=== PATIENT | male | born 1970 | race Caucasian/White ===

== ENCOUNTER 2024-11-03 15:51 | Inpatient (IN) | payer OTHER, SELFPAY ==
--- OUTSIDE RECORDS SUMMARY | 2024-10-29 13:20 | XMS_ITS | Encounter Summary ---
Author Organization [facility] Address [address] [place] [address] Care Team Providers Care Forest Logistics Manager Name Role Phone Unavailable Primary Care Provider Unavailabl e Encounter Details Date Type Department Care Team (Late st Contact Info) Description 10/29/2024 1:20 PM EDT Office Visit [facility] [address] [place] [phone] Saundra Drake PA [address] [place] [address] Pain and swelling of right knee (Primary Dx); Acute pain of right knee Social History Tobacco Use Types Packs/Day Years Used Date Smoking Tobacco: Never Assessed Sex and Gender Information Value Date Recorded Sex Assigned at Not on file Legal Sex Male 7:16 PM EDT Gender Identity Not on file Sexual Orientation Not on file documented as of this encounter Last Filed Vital Signs Vital Sign Reading Time Taken Comments Blood Pressure 114/86 10/29/2024 1:25 PM EDT Pulse 95 10/29/2024 1:25 PM EDT Temperature - - Respiratory Rate - - Oxygen Saturation 99% 10/29/2024 1:25 PM EDT Inhaled Oxygen Concentration - - Weight 78.9 kg (174 lb) 10/29/2024 1:25 PM EDT Height - - Body Mass Index - - documented in this encounter Plan of Treatment Scheduled Orders Name Type Priority Associated Diagnoses Orde r Schedule Splint Application Procedures Routine Pain and swelling of right knee Acute pain of right knee Ordered: 10/29/2024 documented as of this encounter Procedures Procedure Name Priority Date/Time Associated Diagnosis Comments XR KNEE 3 VIEWS RIGHT STAT 10/29/2024 1:46 PM EDT Acute pain of right knee documented in this encounter Results * XR knee 3 views right (10/29/2024 1:46 PM EDT) Anatomical Region Laterality Modality Lower Extremities, Knee Right [facility] 10/30/2024 9:51 AM EDT Impressions 10/30/2024 9:51 AM EDT Soft tissue edema without acute osseous findings. ELECTRONICALLY SIGNED BY: Hernan Corral MD Narrative 10/30/2024 9:51 AM EDT EXAMINATION/TECHNIQUE: XR KNEE 3 VIEWS RIGHT HISTORY: Right knee pain. COMPARISON: None RESULT: No acute fracture. No dislocation. No joint effusion. Small osteophytes. Mild medial compartment narrowing. Fairly extensive soft tissue edema anteriorly, suspicious for prepatellar bursitis, better assessed clinically. Procedure Note Hernan Corral MD - 10/30/2024 EXAMINATION/TECHNIQUE: XR KNEE 3 VIEWS RIGHT HISTORY: Right knee pain. COMPARISON: None RESULT: No acute fracture. No dislocation. No joint effusion. Small osteophytes.Mild medial compartment narrowing. Fairly extensive soft tissue edemaanteriorly, suspicious for prepatellar bursitis, better assessedclinically. IMPRESSION: Soft tissue edema without acute osseous findings. ELECTRONICALLY SIGNED BY: Hernan Corral MD Saundra LINTON IMG XR PROCEDURES Final Resu lt documented in this encounter Visit Diagnoses Diagnosis Pain and swelling of right knee- Primary Acute pain of right knee documented in this encounter
--- OUTSIDE RECORDS SUMMARY | 2024-10-29 13:20 | XMS_ITS | Encounter Summary ---
Author Organization [facility] Address [address] [place] [address] Care Team Providers Care Physiological Chemist Name Role Phone Unavailable Primary Care Provider Unavailabl e Encounter Details Date Type Department Care Team (Late st Contact Info) Description 10/29/2024 1:20 PM EDT Office Visit [facility] [place] [facility] [address] [place] [phone] Saundra Drake PA [address] [place] [address] Pain and swelling of right knee (Primary [...] Laterality Modality Lower Extremities, Knee Right [facility] 10/30/2024 9:51 AM EDT Impressions [...]
--- OUTSIDE RECORDS SUMMARY | 2024-10-29 13:45 | XMS_ITS | Encounter Summary ---
Author Organization [facility] Address [address] [place] [address] Care Team Providers Care Second Cook And Baker Name Role Phone Unavailable Primary Care Provider Unavailabl e Encounter Details Date Type Department Care Team (Late st Contact Info) Description 10/29/2024 1:45 PM EDT Ancillary Procedure [facility] [address] [phone] Social History Tobacco Use Types Packs/Day Years Used Date Smoking Tobacco: Never Assessed Sex and Gender Information Value Date Recorded Sex Assigned at Not on file Legal Sex Male 7:16 PM EDT Gender Identity Not on file Sexual Orientation Not on file documented as of this encounter Plan of Treatment Not on file documented as of this encounter Procedures Procedure Name Priority Date/Time Associated Diagnosis Comments XR KNEE 3 VIEWS RIGHT STAT 10/29/2024 1:46 PM EDT Acute pain of right knee documented in this encounter Results * XR knee 3 views right (10/29/2024 1:46 PM EDT) Anatomical Region Laterality Modality Lower Extremities, Knee Right Radiogra phic Imaging 10/30/2024 9:51 AM EDT Impressions 10/30/2024 [...] ELECTRONICALLY SIGNED BY: Hernan Corral MD Saundra Noelle [facility] IMG XR PROCEDURES Final Resu lt documented in this encounter Visit Diagnoses Not on filedocumented in this encounter
--- OUTSIDE RECORDS SUMMARY | 2024-10-29 13:45 | XMS_ITS | Encounter Summary ---
Author Organization [facility] Address [address] [place] [address] Care Team Providers Care Tailing Machine Operator Name Role Phone Unavailable Primary Care Provider Unavailabl e Encounter Details Date Type Department Care Team (Late st Contact Info) Description 10/29/2024 1:45 PM EDT Ancillary Procedure [facility] Imaging [address] [phone] Social History Tobacco Use Types [...]
[2024-11-03 15:56] VITALS: BP 149/80; PULSE 88; TEMP 36.8; O2SAT 96; BMI 29.0
--- NOTE | 2024-11-03 16:11 | XR_ITS ---
The [address] [address] Patient Name: DAYTON CANTU MRN: [id number] date: 1970 Sex: M Assigned Patient Location: ED.MAIN Current Patient Location: ED.MAIN Accession/Order Number: [id number] Exam Date: 11/03/2024 16:40 Report Date: 11/03/2024 17:04 At the request of: SHEY LINTON Procedure: XR knee RT 3V XR knee RT 3V 11/03/2024 4:44 PM SIGNS AND SYMPTOMS: Right knee pain and swelling PROTOCOL: Frontal, lateral, and oblique radiographs of the right knee COMPARISON: None FINDINGS: There is mild narrowing of the medial weightbearing joint space. The patellofemoral joint space is preserved. There is no fracture or dislocation. There is soft tissue swelling in the prepatellar soft tissues. No joint effusion. XR/XR knee RT 3V IMPRESSION: No acute bony injury. Prepatellar soft tissue swelling is noted. Impression dictated by: Dilan High M.D. 11/03/2024 5:04 PM Dictation Location: [place] [address] Electronically authenticated by: [id number] Y Date: 11/03/2024 17:04
--- OUTSIDE RECORDS SUMMARY | 2024-11-03 16:30 | XMS_ITS | Encounter Summary ---
Author Organization [facility] Address [address] [place] [address] Care Team Providers Care Solution Design Engineer Name Role Phone Unavailable Primary Care Provider Unavailabl e Encounter Details Date Type Department Care Team (Late st Contact Info) Description 10/30/2024 Results Follow-Up [facility] [address] [facility] [address] [place] [phone] Saundra Drake PA [address] [place] [address] XR knee 3 views right Social History Tobacco Use Types Packs/Day Years Used Date Smoking Tobacco: Never Assessed Sex and Gender Information Value Date Recorded Sex Assigned at Not on file Legal Sex Male 7:16 PM EDT Gender Identity Not on file Sexual Orientation Not on file documented as of this encounter Miscellaneous Notes * Telephone Encounter - Sasha Bolton MA - 10/30/2024 12:25 PM EDT Spoke to pt he understood, and had no further questions at this time documented in this encounter Plan of Treatment Not on file documented as of this encounter Visit Diagnoses Not on filedocumented in this encounter
--- OUTSIDE RECORDS SUMMARY | 2024-11-03 16:30 | XMS_ITS | Encounter Summary ---
Author Organization [facility] Address [address] [place] [address] Care Team Providers Care Radiation Therapy Technician Name Role Phone Unavailable Primary Care Provider Unavailabl e Encounter Details Date Type Department Care Team (Latest Contact Info) Description 10/29/2024 Travel Social History Tobacco Use Types Packs/Day Years [...]
--- OUTSIDE RECORDS SUMMARY | 2024-11-03 16:30 | XMS_ITS | Clinical Summary ---
Author Organization [facility] Healthcare Address [address] [place] [address] Care Team Providers Care Weather Algorithm Scientist Name Role Phone Unavailable Primary Care Provider Unavailabl e Allergies No known active allergies Medications predniSONE (Deltasone) 10 MG tabletIndication s:Pain and swelling of right knee Day 1-2 take 4 tabs orally by mouth once daily. Day 3-4 take 3 tabs. Day 5-6 take 2 tabs. Day 7-8 take 1 tab. Once daily for 8 days. 20 tablet 10/29/2024 Active Encounters Date Type Department Care Team Description 10/30/2024 Results Follow-Up [facility] [address] [facility] [address] [place] [address] Saundra Drake PA XR knee 3 views right 10/29/2024 1:45 PM EDT Ancillary Procedure [facility] [address] [facility] [address] [place] [address] 10/29/2024 1:20 PM EDT Office Visit [facility] [address] [facility] [address] [place] [address] Saundra Drake PA Pain and swelling of right knee (Primary Dx); Acute pain of right knee 10/29/2024 Travel from Last 3 Months Social History Tobacco Use Types Packs/Day Years Used Date Smoking Tobacco: Never Assessed Sex and Gender Information Value Date Recorded Sex Assigned at Not on file Legal Sex Male 7:16 PM EDT Gender Identity Not on file Sexual Orientation Not on file Last Filed Vital Signs Vital Sign Reading Time Taken Comments Blood Pressure 114/86 10/29/2024 1:25 PM EDT Pulse 95 10/29/2024 1:25 PM EDT Temperature - - Respiratory Rate - - Oxygen Saturation 99% 10/29/2024 1:25 PM EDT Inhaled Oxygen Concentration - - Weight 78.9 kg (174 lb) 10/29/2024 1:25 PM EDT Height - - Body Mass Index - - Plan of Treatment Health Maintenance Due Date Last Done Comments CT Colonography 1970 Colonoscopy 1970 Colorectal Cancer Screening 1970 FIT-DNA 1970 FIT 1970 FOBT 1970 Sigmoidoscopy 1970 Influenza Vaccine (#1) 2024 Procedures Procedure Name Priority Date/Time Associated Diagnosis Comments XR KNEE 3 VIEWS RIGHT STAT 10/29/2024 1:46 PM EDT Acute pain of right knee from Last 3 Months Results * XR knee 3 views right (10/29/2024 1:46 PM EDT) Anatomical Region Laterality Modality Lower Extremities, Knee Right [facility] 10/30/2024 9:51 AM EDT [...] findings. ELECTRONICALLY SIGNED BY: Hernan Corral MD [facility] IMG XR PROCEDURES Final Resu lt from Last 3 Months Insurance [employer]
[2024-11-03 16:37] LABS: Hematocrit 34.3 % (42.0-54.0); Hemoglobin 11.9 g/dL (14.0-18.0); Immature Granulocytes Abs Auto 0.11 10^3/uL (0.00-0.03); Immature Granulocytes Pct Auto 0.6 % (0.0-0.5); Lymphocytes Absolute Auto 1.5 10^3/uL (1.2-3.8); Mean Corpuscular HGB Conc 34.7 g/dL (29.9-35.2); Mean Corpuscular Hemoglobin 30.5 pg (25.9-34.0); Mean Corpuscular Volume 87.9 fL (80.0-94.0); Platelet Count 299 10^3/uL (150-450); Red Blood Count 3.90 10^6/uL (4.70-6.10); White Blood Count 18.0 10^3/uL (4.0-11.0)
[2024-11-03 16:45] LABS: Anion Gap 14.4; Blood Urea Nitrogen 18.0 mg/dL (7.0-18.0); Calcium 8.7 mg/dL (8.5-10.1); Carbon Dioxide 27.8 mmol/L (21.0-32.0); Chloride 102 mmol/L (98-107); Estimated GFR (African America >60 (>=60 mL/min/1.73m^2); Estimated GFR (Non-African Ame >60 (>=60 mL/min/1.73m^2); Glucose 155 mg/dL (74-106); Potassium 3.2 mmol/L (3.5-5.1); Sodium 141 mmol/L (136-145)
[2024-11-03 16:54] LABS: Lactate/Lactic Acid 1.9 mmol/L (0.4-2.0)
--- NOTE | 2024-11-03 16:54 | ED_ITS ---
HPI HPI - Extremity Injury (Lower) General Chief Complaint: Extremity Injury, Lower Stated Complaint: LOWER EXTREMITY INJURY Time Seen by Provider: 11/03/24 15:57 Source: patient Mode of arrival: walk-in History of Present Illness HPI Narrative: 54-year-old male presents to the ED with swelling, redness, and pain of the right lower extremity. Symptoms began approximately 2 days ago after prolonged kneeling while laying daniel at home, during which he sustained a small abrasion over the prepatellar area. He reports progressive redness and warmth extending from the prepatellar region down into the calf and up the medial thigh. Pain is most prominent around the patella. He denies numbness, tingling, or weakness in the leg. He is afebrile and has not experienced systemic symptoms such as chills or malaise. He has no history of autoimmune disease or immunosuppression and is not currently taking any medications. There are no known aggravating or relieving factors. He reports no history of similar symptoms in the past. Related Data Home Medications ?Medication ?Instructions ?Recorded ?Confirmed prednisone 10 mg tablet 10 mg PO DAILY 11/03/2410/07 Allergies Allergy/AdvReac Type Severity Reaction Status Date / Time No Known Drug Allergies Allergy Verified 11/03/24 15:56 Opioid HPI Opioid Management Most Recent Pain and Opioid Data: Last Pain Scale 8 Today, 18:50 Last Pain Assessment Today, 18:50 Last ORT Total Score 0 Today, 18:53 Last ORT Risk Category Low Risk Today, 18:53 PFSH PFSH Social History Highest level of school completed/degree received: GED or equivalent Little interest or pleasure in doing things: not at all Feeling down, depressed, or hopeless: not at all Do you think of yourself as: straight/heterosexual Gender Identity: male Exam Narrative Exam Narrative: General: Alert, oriented, no acute distress. Afebrile. Cardiac: Regular rate and rhythm, no murmurs. Distal pulses 2+ and symmetric. Pulmonary: Lungs clear to auscultation bilaterally. No respiratory distress. Abdomen: Soft, nondistended, non-tender. Extremities (Right Lower Extremity): * Erythema, warmth, and tenderness over the prepatellar region extending into the medial thigh and proximal calf. * Streaking noted along the medial thigh. * Mild prepatellar edema. * No fluctuance or drainable abscess appreciated. * Full active and passive range of motion of the knee without significant pain, making septic arthritis less likely. * Calf tender to palpation, but no palpable cord. * Distal pulses palpable, capillary refill <2 seconds. Sensation intact distally. Skin: Abrasion noted overlying prepatellar area. No necrosis, crepitus, or bullae. Neuro: Motor strength intact in bilateral lower extremities. Sensation intact to light touch. Cranial nerves II?XII grossly intact. Constitutional Vital Signs, click to edit/add: Last Vital Signs Temp 98.3 F 11/03/24 15:56 Pulse 88 11/03/24 15:56 Resp 18 11/03/24 15:56 BP 149/80 H 11/03/24 15:56 Pulse Ox 96 11/03/24 15:56 O2 Del Method Room Air 11/03/24 15:56 Course Vital Signs Vital signs: Vital Signs Temperature 98.3 F 11/03/24 15:56 Pulse Rate 88 11/03/24 15:56 Respiratory Rate 18 11/03/24 15:56 Blood Pressure 149/80 H 11/03/24 15:56 Pulse Oximetry 96 11/03/24 15:56 Oxygen Delivery Method Room Air 11/03/24 15:56 Temperature 98.3 F 11/03/24 15:56 Pulse Rate 88 11/03/24 15:56 Respiratory Rate 18 11/03/24 15:56 Blood Pressure 149/80 H 11/03/24 15:56 Pulse Oximetry 96 11/03/24 15:56 Oxygen Delivery Method Room Air 11/03/24 15:56 MDM - Extremity Injury (Lower) MDM Narrative Medical decision making narrative: 54-year-old male presents with right lower extremity pain, swelling, redness, and warmth localized around the prepatellar region with extension into the calf and medial thigh. Symptoms began after prolonged kneeling while laying daniel with associated abrasion to the area. On exam, he is afebrile, neurovascularly intact, with erythema, warmth, and tenderness over the prepatellar area, streaking up the medial thigh, and calf tenderness. No evidence of fluctuance or septic joint as he is able to move the knee through a full range of motion after antibiotic initiation. Workup revealed leukocytosis (WBC 18). Lower extremity ultrasound was negative for DVT. X-ray demonstrated prepatellar soft tissue edema consistent with cellulitis. Given extent of infection, streaking erythema, elevated WBC, and failure to improve with conservative measures, patient was started on IV vancomycin and ceftriaxone in the ED. Presentation is most consistent with cellulitis, likely secondary to skin break/abrasion. Given severity, rapid progression, and risk for worsening infection, patient will benefit from hospital admission for continued IV antibiotic therapy and monitoring. Medical Records Attestation: I reviewed the patient's medical records. Lab Data Attestation: I reviewed the patient's lab results. Labs: Lab Results 11/03/24 11/03/24 Range/Units 16:18 16:26 WBC 18.0 H (4.0-11.0) 10^3/uL RBC 3.90 L (4.70-6.10) 10^6/uL Hgb 11.9 L (14.0-18.0) g/dL Hct 34.3 L (42.0-54.0) % MCV 87.9 (80.0-94.0) fL MCH 30.5 (25.9-34.0) pg MCHC 34.7 (29.9-35.2) g/dL RDW 13.6 (11.0-15.0) % Plt Count 299 (150-450) 10^3/uL MPV 11.0 (9.5-13.5) fL Neut % (Auto) 85.7 H (43.0-75.0) % Lymph % (Auto) 8.2 L (20.5-60.0) % [place] % (Auto) 5.2 (1.7-12.0) % Eos % (Auto) 0.1 L (0.9-7.0) % Baso % (Auto) 0.2 (0.2-2.0) % Neut # (Auto) 15.4 H (1.4-6.5) 10^3/uL Lymph # (Auto) 1.5 (1.2-3.8) 10^3/uL [place] # (Auto) 0.9 H (0.3-0.8) 10^3/uL Eos # (Auto) 0.0 (0.0-0.7) 10^3/uL Baso # (Auto) 0.0 (0.0-0.1) 10^3/uL Abs Immat Gran (auto) 0.11 H (0.00-0.03) 10^3/uL Imm/Tot Granulo (auto) 0.6 H (0.0-0.5) % ESR 52 H (<=20) mm/hr Sodium 141 (136-145) mmol/L Potassium 3.2 L (3.5-5.1) mmol/L Chloride 102 (98-107) mmol/L Carbon Dioxide 27.8 (21.0-32.0) mmol/L Anion Gap 14.4 BUN 18.0 (7.0-18.0) mg/dL Creatinine 0.82 (0.70-1.30) mg/dL Est GFR ( Amer) >60 (>=60 mL/min/1.73m^2) Est GFR (Non-Af Amer) >60 (>=60 mL/min/1.73m^2) BUN/Creatinine Ratio 22.0 Glucose 155 H (74-106) mg/dL Calcium 8.7 (8.5-10.1) mg/dL C-Reactive Protein 13.03 H (<=0.50) mg/dL Imaging Data xr: Attestation: I have reviewed the pertinent imaging results. Radiologist's impression: ITS Impressions Knee X-Ray 11/03/24 16:11 IMPRESSION: No acute bony injury. Prepatellar soft tissue swelling is noted. Impression dictated by: Dilan High M.D. 11/03/2024 5:04 PM Dictation Location: [place] [address] Electronically authenticated by: [id number] Y Date: 11/03/2024 17:04 The ultrasound showed 1 no DVT in the right lower extremity 2 mild soft tissue edema at the right calf. Patient in normal waveform augmentation. This was read by Tien Tabares at 1621 Discharge Plan Discharge Chief Complaint: Extremity Injury, Lower Clinical Impression: Cellulitis of leg, right Patient Disposition: Admitted as Observation Time of Disposition Decision: 18:00 Discharge Date/Time: 11/03/24 18:44
[2024-11-03] MEDS: VANCOMYCIN HCL 1,000 MG in 0.9 % SODIUM CHLORIDE 250 ML 250 MG IV (17:09)
[2024-11-03 18:50] VITALS: BP 147/74; PULSE 78; TEMP 36.8; O2SAT 94
[2024-11-03 18:53] VITALS: BP 140/84; BP 147/74; PULSE 78; PULSE 84; TEMP 36.8; TEMP 37.2; O2SAT 94; O2SAT 98
[2024-11-03 20:00] VITALS: BP 151/81; PULSE 86; TEMP 36.8; O2SAT 97
[2024-11-03] MEDS: 0.9 % SODIUM CHLORIDE 1,000 ML 100 ML IV (22:05)
[2024-11-03] MEDS: ENOXAPARIN SODIUM 40 MG/0.4 ML SYRINGE SUBQ (22:06)
[2024-11-03] MEDS: POTASSIUM CHLORIDE 10 MEQ ER TABLET 20 MEQ PO (22:06)
[2024-11-03] MEDS: ACETAMINOPHEN 325 MG TABLET 650 MG PO (22:06)
[2024-11-04] VITALS: BP 159/79; PULSE 80; TEMP 36.8; O2SAT 94
[2024-11-04 04:00] VITALS: BP 162/78; PULSE 78; TEMP 37.3; O2SAT 94
[2024-11-04 06:45] LABS: Hematocrit 31.7 % (42.0-54.0); Hemoglobin 10.7 g/dL (14.0-18.0); Immature Granulocytes Abs Auto 0.06 10^3/uL (0.00-0.03); Immature Granulocytes Pct Auto 0.4 % (0.0-0.5); Lymphocytes Absolute Auto 3.5 10^3/uL (1.2-3.8); Mean Corpuscular HGB Conc 33.8 g/dL (29.9-35.2); Mean Corpuscular Hemoglobin 30.7 pg (25.9-34.0); Mean Corpuscular Volume 91.1 fL (80.0-94.0); Platelet Count 288 10^3/uL (150-450); Red Blood Count 3.48 10^6/uL (4.70-6.10); White Blood Count 17.1 10^3/uL (4.0-11.0)
[2024-11-04 06:57] LABS: Anion Gap 12.4; Blood Urea Nitrogen 15.0 mg/dL (7.0-18.0); Calcium 8.3 mg/dL (8.5-10.1); Carbon Dioxide 30.1 mmol/L (21.0-32.0); Chloride 102 mmol/L (98-107); Estimated GFR (African America >60 (>=60 mL/min/1.73m^2); Estimated GFR (Non-African Ame >60 (>=60 mL/min/1.73m^2); Glucose 116 mg/dL (74-106); Magnesium 1.7 mg/dL (1.8-2.4); Potassium 3.5 mmol/L (3.5-5.1); Sodium 141 mmol/L (136-145)
[2024-11-04 07:38] VITALS: BP 156/84; PULSE 80; TEMP 36.9; O2SAT 95
[2024-11-04] MEDS: IBUPROFEN 400 MG TABLET PO ×2 (07:48→17:48)
--- NOTE | 2024-11-04 09:00 | P.HP_ITS ---
HPI H&P: HPI History of Present Illness Chief complaint: LOWER EXTREMITY INJURY, CELLULITUS OF RIGHT LEG Narrative: Mr. Mehta is a 54-year-old gentleman who came in with pain, swelling and tenderness in the right leg from the mid thigh down to the mid calderon. This started after patient started working on carpet at home and kneeling trying to fit the carpet. No prior history of infection. No other medical issues. Opioid HPI Opioid Management Most Recent Pain and Opioid Data: Last Pain Scale 4 Today, 08:59 Last Pain Assessment 11/03/24, 18:50 Last MAR Pain Assessment 11/03/24, 22:06 Last ORT Total Score 0 11/03/24, 18:53 Last ORT Risk Category Low Risk 11/03/24, 18:53 Review of Systems ROS Status of ROS 10 or more systems reviewed and unremark able except as noted in history and below [facility] Medical History (Updated 11/04/24 @ 09:02 by Gio Mack MD) Tobacco abuse ?Z72.0 - Tobacco use (ICD-10) Hypertension ?I10 - Essential (primary) hypertension (ICD-10) Family History (Updated 11/04/24 @ 06:00 by Walter Whitman RN) Other Family history of hypertension Social History (Updated 11/04/24 @ 06:02 by Walter Whitman RN) Smoking status: Current every day smoker Non-prescribed substance use: denies use Previous occupational history: Contractor Highest level of school completed/degree received: GED or equivalent Do you want help with school or training: No Little interest or pleasure in doing things: not at all Feeling down, depressed, or hopeless: not at all Feel stressed/tense/nervous/anxious/difficulty sleeping: not at all Due to disability, difficulty making decisions: No Do you think of yourself as: straight/heterosexual Gender Identity: male Meds Home Medications and Allergies Home Medications ?Medication ?Instructions ?Recorded ?Confirmed ?Type prednisone 10 mg tablet 10 mg PO DAILY 11/03/2410/07 History Allergies Allergy/AdvReac Type Severity Reaction Status Date / Time No Known Drug Allergies Allergy Verified 11/03/24 15:56 Exam Narrative Exam Narrative: [pt is awake and alert. oriented to place, time and person HEENT: Central conjunctiva and NL buccal mucosa Neck: Supple, no tenderness Endocrine: No Thyromegaly. Vascular: No JVD or carotid bruit. Lymphatic: No cervical lymphadenopathy. Chest: CTA no DTP. Heart RRR, no extra sound or murmur. Abd: Soft, no tenderness, no rebound and no rigidity. Increase abd girth therefore clinically I could not exclude the possibility of intra abd mass or organomegaly. LE: No cyanosis or clubbing, no varices or edema. Edema, induration, tenderness of the right leg from the mid thigh anteriorly, medially, laterally, down to the mid calderon. Erythema, induration and tenderness in the thigh and calderon are fading away and improving. Swelling over the kneecap. No actual knee joint effusion. Neuro: A A O. Nl speech, comprehension and attention. Nl and symetrical motor and tone examination through out. []] Constitutional Vital Signs, click to edit/add: Last Vital Signs Temp 98.5 F 11/04/24 07:38 Pulse 80 11/04/24 07:38 Resp 18 11/04/24 07:38 BP 156/84 H 11/04/24 07:38 Pulse Ox 95 11/04/24 07:38 O2 Del Method Room Air 11/04/24 07:38 Results Labs Labs: Short CBC 11/03/24 11/04/24 Range/Units 16:18 05:46 WBC 18.0 H 17.1 H (4.0-11.0) 10^3/uL Hgb 11.9 L 10.7 L (14.0-18.0) g/dL Hct 34.3 L 31.7 L (42.0-54.0) % Plt Count 299 288 (150-450) 10^3/uL BMP 11/03/24 11/04/24 16:18 05:46 Sodium 141 141 Potassium 3.2 L 3.5 Chloride 102 102 Carbon Dioxide 27.8 30.1 BUN 18.0 15.0 Creatinine 0.82 0.61 L Glucose 155 H 116 H Calcium 8.7 8.3 L Assessment and Plan Assessment and Plan (1) Cellulitis of leg, right: (2) Sepsis: Plan Sepsis present on admission. Please refer to initial sepsis evaluation, workup and treatment completed in the emergency room department according to sepsis guidelines. Left leg cellulitis. So far there is no knee joint effusion. There is a swelling in the skin and subcutaneous tissue. At this time, I could not exclude the possibility of septic joint with high degree of certainty The erythema, tenderness and swelling are improving and fading away compared to yesterday according to the patient and his nurse. The entire skin around the knee is inflamed and tender therefore I would not recommend aspiration of the knee at this time that may cause inoculation of bacteria into the joint I started patient on intravenous antibiotic. I will monitor her recovery over the next 48 to 96 hours. I will see Ortho consultation if the suspicion of a septic knee increases over the next 2 days Pain Pain managed DVT prophylax Lovenox subcu
[2024-11-04] MEDS: DOXYCYCLINE MONOHYDRATE 100 MG CAPSULE PO ×2 (10:19→21:19)
[2024-11-04] MEDS: MAGNESIUM SULFATE IN WATER 2 GM/50 ML PREMIX IV (10:20)
[2024-11-04] MEDS: POTASSIUM CHLORIDE 10 MEQ ER TABLET 20 MEQ PO (10:20)
[2024-11-04 11:41] VITALS: BP 144/76; PULSE 71; TEMP 36.9; O2SAT 93
[2024-11-04] MEDS: ACETAMINOPHEN 325 MG TABLET 650 MG PO (15:04)
[2024-11-04 15:10] VITALS: BP 157/87; PULSE 78; TEMP 36.7; O2SAT 97
[2024-11-04 19:47] VITALS: BP 155/87; TEMP 36.9; O2SAT 95
[2024-11-04] MEDS: ENOXAPARIN SODIUM 40 MG/0.4 ML SYRINGE SUBQ (21:19)
[2024-11-05] VITALS (8 sets, daily range): BP systolic 154–185; BP diastolic 82–93; PULSE 68–95; TEMP 36.8–37.3; O2SAT 94–96
[2024-11-05] MEDS: HYDROMORPHONE HCL 0.5 MG/0.5 ML SYRINGE IV ×2 (00:24→05:12)
[2024-11-05] MEDS: ACETAMINOPHEN 325 MG TABLET 650 MG PO (05:12)
[2024-11-05] MEDS: KETOROLAC TROMETHAMINE 30 MG/ML VIAL IVP (06:04)
[2024-11-05] MEDS: AMLODIPINE BESYLATE 5 MG TABLET PO ×2 (06:04→08:59)
[2024-11-05] MEDS: HYDRALAZINE HCL 20 MG/ML VIAL 10 MG IVP (06:36)
[2024-11-05 06:38] LABS: Hematocrit 32.8 % (42.0-54.0); Hemoglobin 11.3 g/dL (14.0-18.0); Mean Corpuscular HGB Conc 34.5 g/dL (29.9-35.2); Mean Corpuscular Hemoglobin 30.9 pg (25.9-34.0); Mean Corpuscular Volume 89.6 fL (80.0-94.0); Platelet Count 312 10^3/uL (150-450); Red Blood Count 3.66 10^6/uL (4.70-6.10); White Blood Count 18.1 10^3/uL (4.0-11.0)
--- NOTE | 2024-11-05 08:49 | P.DS_ITS ---
DS: Providers Provider Date of admission: 11/03/24 18:44 Primary care physician: Non-Staff Physician, DS: Diagnosis Discharge Diagnosis (1) Cellulitis of leg, right: (2) Sepsis: (3) Hypokalemia: (4) Hypomagnesemia: Plan As listed below and others that are not listed DS: Summary Hospital Course Hospital Course: Mr. Mehta is a 54-year-old gentleman who came to the emergency room with pain, swelling and tenderness for a few days after he had been laying carpet at his house. Sepsis present on admission. Please refer to initial sepsis evaluation, workup and treatment completed in the emergency room department according to sepsis guidelines. Left leg cellulitis. When patient came in he had erythema, induration and tenderness from the mid thigh down to the mid calderon anteriorly, medially and laterally including the knee surface The erythema, tenderness and swelling over the thigh and calderon are improving and fading away significant compared to admission based on the marking that was drawn on his leg by the emergency room staff. Patient however continues to have erythema, induration, tenderness involving the cutaneous and subcutaneous anterior, medial and lateral knee. The entire skin around the knee is inflamed and tender therefore I am hesitant to stick a needle in to aspirate the knee which could probably put him at risk of microbial inoculation of the joint Patient is having tough time bending his knee which could be due to his extensi ve cutaneous and subcutaneous infection but also could be due to septic knee So far there is no concrete evidence of knee joint effusion ( septic knee ) but could not exclude the possibility entirely. His white count and CRP continues to be elevated. Blood culture is pending thus far Venous ultrasound is negative for DVT. I called and discussed the case with orthopedic physician Dr. Tien Seymour. He recommended the patient to be transferred to [facility] so he can inspect the knee and make a decision how to proceed. I spoke with my colleague Dr. Chester. He accepted the patient to be admitted under his service to facilitate orthopedic evaluation. Meanwhile continue intravenous antibiotic. Yesterday I started the patient on ceftriaxone and doxycycline. This morning I discontinued doxycycline and started Zyvox intravenously Hypokalemia and hypomagnesemia Potassium and magnesium supplementation Hypertension. History of hypertension. Patient was not taking his medication I started the patient on amlodipine 5 mg daily. This may need to be titrated to control his blood pressure. Pain Pain managed DVT prophylax Lovenox subcu Time Spent with Patient Time attestation: Total time spent providing and/or coordinating discharge services: Exam Narrative Exam Narrative: Distress secondary to pain and discomfort. Chest is clear, heart regular. Abdomen soft. Significant resolution and improvement of erythema, induration and tenderness involving the lower thigh and upper calderon Persistent erythema, induration and tenderness involving the surface of the right knee anteriorly, medially and laterally, superiorly and inferiorly Patient barely able to bend his knee which could be caused by extensive skin i nflammation or could be related to septic knee Constitutional Vital Signs, click to edit/add: Last Vital Signs Temp 98.3 F 11/05/24 07:56 Pulse 68 11/05/24 07:56 Resp 18 11/05/24 07:56 BP 166/82 H 11/05/24 07:56 Pulse Ox 96 11/05/24 07:56 O2 Del Method Room Air 11/05/24 07:56 DS: Data Data Completed and Pending Labs on day of discharge: Labs from last 24 hours 11/05/24 06:12 WBC 18.1 H RBC 3.66 L Hgb 11.3 L Hct 32.8 L MCV 89.6 MCH 30.9 MCHC 34.5 RDW 13.9 Plt Count 312 MPV 11.2 C-Reactive Protein 16.82 H Discharge Plan Discharge Disposition: [facility]
[2024-11-05] MEDS: LINEZOLID IN DEXTROSE 5% 600 MG/300 ML PIGGYBACK 300 MG IV (08:59)
[2024-11-05] MEDS: POTASSIUM CHLORIDE 10 MEQ ER TABLET 20 MEQ PO (09:00)
[2024-11-05] MEDS: SENNOSIDES/DOCUSATE SODIUM 1 TAB TABLET PO (09:03)
--- OUTSIDE RECORDS SUMMARY | 2024-11-07 10:16 | XMS_ITS | Continuity of Care Document ---
Author Organization [facility] Address [address] [place] [address] Phone Care Team Providers Care Brush Clearing Laborer Name Role Phone NON STAFF Primary Care Provider Unavailabl e Paul Renner MD Admit Provider Paul Renner MD Other Provider Sony Carlos MD Attending Provider [phone] Sony Carlos MD Other Provider Tien Seymour II, MD Other Provider Care Teams Patient Care Team Team Status: Active Member Role Status Dates NON STAFF Primary Care Provider Active Visit Care Team Team Status: Active Member Role Status Dates NON STAFF Primary Care Provider Active Start: November 05, 2024 Paul Renner MD Admit Provider Active Start : November 05, 2024 Paul Renner MD Other Provider Active Start : November 05, 2024 Sony Carlos MD Attending Provider Active Sta rt: November 05, 2024 Sony Carlos MD Other Provider Active Start: November 05, 2024 Tien Seymour II, MD Other Provider Active S tart: November 05, 2024 Chief Complaint and Reason for Visit Chief Complaint Admit Date Septic arthtritis of R knee November 05, 2024 12:39pm Reason for Visit Admit Date Cellulitis of right leg November 05 12:39pm Elevated BP without diagnosis of hyperte nsion November 05, 2024 12:39pm Septic joint November 05, 2024 12 :39pm Septic prepatellar bursitis of right kne e November 05, 2024 12:39pm Reason for Referral Referring Provider Name Referring Provider Address Referring Provider Phone Referral Date Requested Appointment Date Referral Reason Paul [facility] [address] [place] [address] Work Phone: Please keep your appointments as scheduled. Please abimael p your appointments as scheduled. Allergies, Adverse Reactions, Alerts Allergen Type Severity Reaction Last Updated Verified Status No Known Allergies Allergy Unknown November 05, 2024 1:4 3pm Yes Active Social History Smoking Status Status Start Date End Date Date of Observa tion Smokes tobacco daily (finding) November 07, 2024 8:05am Observation Status Observation Response Date of Response Legal Sex Male (finding) Sex Assigned At Male 1970 Problems Active Problems Medical Problem Onset Date Status Cellulitis of right leg Unknown Active Septic prepatellar bursitis of right knee Unknow n Active Septic joint Unknown Active Elevated BP without diagnosis of hypertension Un known Active Medications Medication Status Dose Units Route Directions Qty Days St art Date Stop Date End Date Instructions Adherence Prednisone 10 mg tablet Active 10 MG PO Daily November 05, 2024 12:00a m Complies with drug therapy Dicloxacill in 500 mg capsule Active 500 MG PO Every 6 hours 84 21 2024 12:00a m Unknown Lisinopril 20 mg Tablet Active 20 MG PO Daily 30 30 2024 12:00a m Unknown Oxycodone 5 mg Tablet Active 5 MG PO Every 6 hours as needed for Pain Scale 4 - 7 28 7 2024 Unknown Vital Signs Vital Reading Result Reference Range Collection Date/Time Height 64 [in_i] November 05 1:24pm Weight 81.50 kg November 07, 2024 6:44am Body Temperature 97.7 [degF] 97.6-99.0 November 072024 10:03am Heart Rate 65 /min 60-100 November 07, 2024 12:00pm Respiratory rate 17 /min 12-24 November 072024 12:00pm Oxygen saturation by Pulse oximetry 98 % 95-100 November 07, 2024 12:00pm BP Systolic 159 mm[Hg] 100-140 November 07, 2024 12:00pm BP Diastolic 75 mm[Hg] 60-100 November 07, 2024 12:00pm Inhaled oxygen flow rate 8 L/min Oct 6:15pm Advance Directives Advance Directive Response Recorded Date/ Time Advance Directives No October 26, 2019 8:07am Insurance Providers Guarantor Augustine Magui Tyson Address [address] [facility] [address] Contact Info. Home Phone: Payer Policy Id Subscriber's Name Subscriber Id Effectiv e Date Expiration Date [employer] [id number] Augustine Mehta [id number] Encounters Encounter Location(s) Arrival/Admit Date Discharge/Depart Date Provider(s) Non-patient / Non-visit -[facility] November 05, 2024 12:39pm Sony Carlos MD Recent Diagnosis Onset Date Admit Date Cellulitis of right leg Unknown October 082024 12:39pm Elevated BP without diagnosis of hypertension Un known November 05, 2024 12:39pm Septic joint Unknown November 05 12:39pm Septic prepatellar bursitis of right knee Unknow n November 05, 2024 12:39pm Assessments Diagnosis Onset Date Resolution Status Admit Date Cellulitis of right leg acute A ugust 2024 12:39pm Elevated BP without diagnosi s of hypertension acute November 05 12:39pm Septic joint acute November 05, 2024 12:39pm Septic prepatellar bursitis of right knee acute November 05 12:39pm Plan of Treatment Future Tests Future scheduled test information is unavailable Pending Tests Pending diagnostic test information is unavailable Future Visits Future appointment information is unavailable Referrals to Other Providers Reason for Referral Referral Start Date Provider Provider Contact Information Provider Address Please keep your appointments as scheduled. Pato Martin MD Work Phone: [facility] [address] Future Procedures Procedure Name Ordered Date Scheduled Date Wound Culture (Deep) November 05, 2024 6:00pm Au shivani 2024 5:31pm Wound Culture (Deep) November 05, 2024 6:00pm Au shivani 2024 5:29pm Wound Culture (Deep) November 05, 2024 6:00pm Au shivani 2024 5:30pm Diet Supplement November 06, 2024 7:52am Septe [facility] 2024 7:52am Admit Status Order November 05, 2024 6:16pm Augu st 2024 6:16pm Discharge Order November 07, 2024 12:34pm Sept ember 2024 12:34pm Consult to Infectious Diseases November 05, 2024 2:52pm November 05, 2024 2:52pm Consult to Orthopedic Surgery November 05, 2024 2:52pm November 05, 2024 2:52pm Future Medications Future medication information is unavailable Patient Instructions Instruction Admit Date 3M Prevana Plus 125 Therapy Know your Meds November 05, 2024 12:39pm Hospital Discharge Instructions Additional Instructions Maintain wound vac for 2 weeks till follow up in office
--- OUTSIDE RECORDS SUMMARY | 2024-11-08 06:35 | XMS_ITS | Patient Health Record ---
Author Organization [employer] [facility] Address [address] [place] [address] Care Team Providers Care Warehouse General Laborer Name Role Phone Duarte Mar Primary Care Provider Allergies No Known Allergies Reason For Referral No Information Medications Medication SIG (Take, Route, Frequency, Duration) Notes Start Date End Date Status Ibuprofen 800 MG 1 tablet with food o r milk as needed Orally Three times a day 09/23/2020 Active Lisinopril 10 MG TAKE 1 TABLET BY ANAMIKA TH EVERY DAY; Duration: 30 Active Ibuprofen 800 MG 1 tablet with food o r milk as needed Orally Three times a day 07/18/2020 Active Atorvastatin Calcium 20 MG 1 tablet Oral ly Once a day; Duration: 30 days Active Immunizations Vaccine Route Administration Date Status Comme nts MODERNA IM Intramuscular 08/12/2020 Administered MODERNA IM Intramuscular 09/17/2020 Administered Social History Tobacco Use: Social History Observation Description Date Details (start date - stop date) Current Smoker NA - NA Tobacco Screen: Question Answer Notes Are you a: current smoker How often do you smoke cigarettes? every day How many cigarettes a day do you smoke? 11-20 How soon after you wake up do you smoke your fir st cigarette? 6-30 min Sexual Hx: Question Answer Notes Had sex in the last 12 months (vaginal, oral, or anal)? Yes with Women only Use protection? No Prevention Strategies discussed: Other Alcohol Screening: Question Answer Notes Did you have a drink containing alcohol in the p ast year? 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 22. [address] CLAIMS DEPT [facility] [place] [address] [id number] DAY[employer] C[employer]U Self - patient is the insured 0 zMEDICAID C[employer] after [employer] [address] [place] [address] [id number] [employer] C[employer]U Self - patient is the insured 0 [employer]ENTAL [employer] [address] [address] [place] [address] [id number] [employer] C[employer]U Self - patient is the insured 1 [facility] MEDICAID CFC after [employer] 22 [address] [place] [address] [id number] DAY[employer] C[employer]U Self - patient is the insured Medical (General) History Medical History History ICD Code Hearing Loss Lump to Right Side of Head Removed 2020 Hypertension Low Testosterone Hyperlipidemia Hypertriglyceridemia
--- OUTSIDE RECORDS SUMMARY | 2024-11-08 06:35 | XMS_ITS | Clinical Summary ---
Author Organization [facility] Address [address] [place] [address] Care Team Providers Care Wardrobe Supervisor Name Role Phone [facility] Services Randa Clifford [facility] Care Provider Allergies No known active allergies Medications atorvastatin 10 MG tablet Take 10 mg by mouth daily. Active lisinopril 10 MG tablet Take 10 mg by mouth daily. 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 Overview (12/07/2023): IMO Update Dec 2023 Social History Tobacco Use Types Packs/Day Years Used Date Smoking Tobacco: Every Day Cigarettes 1 20 Smokeless Tobacco: Never Alcohol Use Standard Drinks/Week Comments Not Currently 0 (1 standard drink = 0.6 oz pur e alcohol) Sex and Gender Information Value Date Recorded Sex Assigned at Not on file Legal Sex Male 3:14 PM EDT Gender Identity Not on file Sexual Orientation Not on file Last Filed Vital Signs Vital Sign Reading Time Taken Comments Blood Pressure 145/85 01/16/2020 2:22 PM EST Pulse 68 01/16/2020 2:22 PM EST Temperature 36.7 C (98.1 F) 01/16/2020 2:22 PM EST Respiratory Rate 16 01/05/2020 10:00 AM EDT Oxygen Saturation 96% 01/05/2020 10:00 AM EDT Inhaled Oxygen Concentration - - Weight 76.2 kg (168 lb) 01/16/2020 2:22 PM EST Height 167.6 cm (5' 6 ) 01/05/2020 5:48 AM EDT Body Mass Index 27.12 01/05/2020 5:48 AM EDT Plan of Treatment Health Maintenance Due Date Last Done Comments HEPATITIS C VIRUS SCREENING 1970 TETANUS 1969 HIV SCREENING DISCUSSION 1984 HEP B VACCINE (1 of 3 - 19+ 3-dose series) 1988 TDAP (ADULT) 1988 LIPID SCREENING 2009 COLORECTAL CANCER SCREENING DISCUSSION 2014 PNEUMOCOCCAL VACCINE SERIES (1 of 1 - PCV) 09/19/2019 ZOSTER (SHINGLES) VACCINE (1 of 2) 09/19/2019 COVID-19 VACCINE (1 - season) 2023 PROSTATE CANCER SCREENING DISCUSSION 2024 INFLUENZA VACCINE (#1) 2024 Insurance [facility] Plan Care Teams Wardrobe Supervisor Relationship Specialty Start Date End Date [facility] [address] [place] [id number] PCP - General 12/13/19
--- OUTSIDE RECORDS SUMMARY | 2024-11-08 06:36 | XMS_ITS | Clinical Summary ---
Author Organization [facility] Address [address] [place] [address] Care Team Providers Care Survey Field Technician Name Role Phone Unavailable Primary Care [...] Follow-Up [facility] [address] [facility] [address] [place] [address] Saundra Drake PA XR knee 3 views right 10/29/2024 1:45 PM EDT Ancillary Procedure [facility] [address] [facility] [address] [place] [address] 10/29/2024 1:20 PM EDT Office Visit [facility] [address] [facility] [address] [place] [address] Saundra Drake PA Pain and swelling of [...] Laterality Modality Lower Extremities, Knee [facility] 10/30/2024 9:51 AM EDT Impressions [...] findings. ELECTRONICALLY SIGNED BY: Hernan Corral MD [facility] M Workman SHAILA IMG XR PROCEDURES Final Resu lt from Last 3 Months Insurance [employer]
--- OUTSIDE RECORDS SUMMARY | 2024-11-08 06:36 | XMS_ITS | Encounter Summary ---
Author Organization [facility] Address [address] [place] [address] Care Team Providers Care Precision Millwright Name Role Phone Unavailable Primary Care Provider [...]
--- OUTSIDE RECORDS SUMMARY | 2024-11-08 06:36 | XMS_ITS | Encounter Summary ---
Author Organization [facility] Address [address] [facility] [place] [address] Care Team Providers Care Pai Gow Dealer Name Role Phone Unavailable Primary Care Provider Unavailabl e Encounter Details Date Type Department Care Team (Late st Contact Info) Description 10/30/2024 Results Follow-Up [facility] [address] [facility] [address] [place] [phone] Saundra Drake PA [address] [place] [address] XR knee 3 views right Social History [...]
== END 2024-11-05 11:56 | disposition short-term general hospital (02) | DRG 720 ==
LOC: ER 18:33 → MS 11-05 08:48
PROVIDERS: Physician Assistant; Admitting Provider Internal Medicine; Emergency Provider Student in an Organized Health Care Education/Training Program; Visit Provider Internal Medicine
DX: A41.9 Sepsis, unspecified organism (principal); L03.115 Cellulitis of right lower limb; S80.211A Abrasion, right knee, initial encounter; X58.XXXA Exposure to other specified factors, initial encounter; Y93.89 Activity, other specified; I10 Essential (primary) hypertension; F17.200 Nicotine dependence, unspecified, uncomplicated; E87.6 Hypokalemia; E83.42 Hypomagnesemia
CPT/HCPCS: 36415; 73562; 80048; 83605; 83735; 85025; 85027; 85652; 86140; 87040; 93971; 96365; 96367; 99285; 99406; J0360; J0696; J1171; J1650; J1885; J2020; J3373; J3475